=== PATIENT | male | born 1975 ===

== ENCOUNTER → 2018-06-05 13:50 | Outpatient (REF) | payer OTHER, SELFPAY | LOC: LAB 13:50 | PROVIDERS: Family Provider Family Medicine; PCP Family Medicine; Visit Provider Physician Assistant | DX: L02.423 Furuncle of right upper limb (principal); L02.424 Furuncle of left upper limb; L02.223 Furuncle of chest wall; L02.12 Furuncle of neck | CPT/HCPCS: 87070; 87205 ==